=== PATIENT | female | born 1965 | race Caucasian/White ===

== ENCOUNTER 2016-07-01 22:38 | Emergency (ER) | payer MEDICARE ==
--- NOTE | 2016-07-01 23:20 | ERNOTE ---
Headache ER HPI - Narrative Date of Service: 07/01/16 - General Presenting Symptoms: headache, "migraine" Time Seen by Provider: 07/01/16 23:20 Source: patient, RN notes reviewed - Immun/Allergies/Home Medications Immunizations: IMMUNIZATION HX Immunizations Up to Date Yes History of Influenza Vaccine No Hx Pneumococcal Vaccination No Allergies/Adverse Reactions: Allergies gabapentin Allergy (Verified 07/01/16 22:46) metoclopramide HCl [From Reglan] Allergy (Verified 07/01/16 22:46) aspertene Allergy (Uncoded 07/01/16 22:46) Home Medications: HOME MEDICATIONS Albuterol Sulfate [Ventolin Hfa] 2 puff IH Q4H 01/22/14 [Last Taken Unknown] Vitamin D3/Vitamin K2 [D3 + K2 Dots 1,000 Units Tab] 10,000 units PO Q7D [Last Taken Unknown] traZODone HCL [Desyrel] 300 mg PO HS 02/27/15 [Last Taken Unknown] Buspirone HCl 7.5 mg PO BID 03/22/16 [Last Taken Unknown] LORazepam [Ativan] 1 mg PO TID 03/22/16 [Last Taken Unknown] - Pain Pain Score: 8 - History of Present Illness Date (Duration): 07/01/16 Timing of Headache: abrupt, still present, constant, persistent Context Headache: Present: new onset Quality: Present: throbbing Severity Maximum: Present: severe Severity-Currently: Present: severe Headache frequency: Present: occasional headaches, similar to previous headache Modifying Factors - (Worsens): Reports: exposure to light Associated Symptoms: Reports: nausea, vomiting - once Exacerbated by:: Reports: light, noise Review of Systems - Review of Systems Constitutional: Present: no symptoms reported EYE: Present: see HPI, blurred vision ENT: Present: no symptoms reported Respiratory: Present: no symptoms reported Cardiology: Present: no symptoms reported Gastrointestinal/Abdominal: Present: See HPI, nausea, vomiting Genitourinary: Present: no symptoms reported Musculoskeletal: Present: no symptoms reported Skin: Present: no symptoms reported Neurological: Present: See HPI, headache Endocrine: Present: no symptoms reported Hematologic/Lymphatic: Present: no symptoms reported Psych: Present: no symptoms reported All Other Systems: All systems neg except as marked - Patient's Past Medical History Patient History - Medical: Arthritis, Fibromyalgia, Migraines Patient History - Cardiac/Respiratory: Hypertension Patient History - Cancer: No Hx of Cancer Patient History - Surgical Procedures: Hysterectomy, Tubal Ligation, Other Patient History - Other: None - Social History Living Situations: home Psych History: No pertinent hx Smoking Status: Current every day smoker Alcohol Use: none Drug Use: none - Immunizations Immunizations Up to Date: Yes Hx Pneumococcal Vaccination: No History of Influenza Vaccine: No Physical Exam - Physical Exam General Appearance: Present: alert, mild distress - Due to pain Eye Exam: Normal inspection: bilateral, PERRL: bilateral, EOMI: bilateral Ears, Nose, Throat: Present: normal ENT inspection, hearing grossly normal Neck: Present: normal inspection, nontender Respiratory: Present: no respiratory distress, normal breath sounds, no accessory muscle use, chest nontender, lungs clear Cardiovascular/Chest: Present: regular rate, rhythm, no murmur, normal peripheral pulses Gastrointestinal/Abdominal: Present: normal bowel sounds, nontender, nondistended, soft, no organomegaly Neurological Exam: Present: alert, oriented, normal mood/affect, no motor/ sensory deficits Skin Exam: Present: normal color, warm/dry ED Progress - Vital Signs Patient's Vital Signs:: I have reviewed the patient's vital signs. Vital Signs: Vital Signs 07/01/16 22:43 Temperature 36.4 C L Pulse Rate 86 Respiratory 18 Rate Blood Pressure 140/87 O2 Sat by Pulse 96 Oximetry - Progress/Reassessment Chief Complaint: Headache Progress:: Pain free at discharge Departure Clinical Impression: Migraine headache with aura Qualifiers: Status migrainosus presence: without status migrainosus Intractability: not intractable Qualified Code(s): G43.109 - Migraine with aura, not intractable, without status migrainosus - Departure Disposition: Home self-care Condition: Good Instructions: Migraine Headache, [id number] Referrals: Baljeet Feliz MD [Primary Care Provider] -
[2016-07-01] MEDS ORDERED: DIAZEPAM 5 MG/ML SYRG IV ONE (23:24)
[2016-07-01] MEDS ORDERED: KETOROLAC TROMETHAMINE 30 MG/ML VIAL IV ONE (23:24)
[2016-07-01] MEDS ORDERED: NORMAL SALINE 1,000 ML IV ONE (23:24)
[2016-07-01] MEDS ORDERED: DEXAMETHASONE SOD PHOSPHATE 10 MG/ML VIAL IV ONE (23:24)
[2016-07-01] MEDS ORDERED: PROCHLORPERAZINE EDISYLATE 5 MG/ML VIAL IV ONE (23:26)
[2016-07-01] MEDS ORDERED: KETOROLAC TROMETHAMINE 30 MG/ML VIAL ONE (23:31)
[2016-07-01] MEDS ORDERED: DEXAMETHASONE SOD PHOSPHATE 10 MG/ML VIAL ONE (23:31)
[2016-07-01] MEDS ORDERED: DIAZEPAM 5 MG/ML SYRG ONE (23:31)
[2016-07-01] MEDS ORDERED: PROCHLORPERAZINE EDISYLATE 5 MG/ML VIAL ONE (23:31)
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
[2016-07-02 01:06] VITALS: BP 126/82
== END 2016-07-02 01:05 | disposition home or self-care (01) ==
LOC: ER 22:38
DX: G43.109 Migraine with aura, not intractable, without status migrainosus (principal); F17.210 Nicotine dependence, cigarettes, uncomplicated

== ENCOUNTER 2016-11-17 14:16 | Emergency (ER) | payer MEDICARE ==
[2016-11-17] MEDS ORDERED: PROMETHAZINE HCL 25 MG in DEXTROSE 5 % IN WATER 50 ML IV ONE ×2 (15:58)
[2016-11-17] MEDS ORDERED: KETOROLAC TROMETHAMINE 30 MG/ML VIAL IV ONE (15:58)
[2016-11-17] MEDS ORDERED: NORMAL SALINE 1,000 ML IV ONE (15:58)
[2016-11-17] MEDS ORDERED: diphenhydrAMINE HCL 50 MG/ML VIAL IV ONE (15:58)
--- NOTE | 2016-11-17 15:59 | ERNOTE ---
Date of Service: 11/17/16 Time Seen by Provider: 11/17/16 15:49 Stated Complaint: PNEUNOMIA Presenting Symptoms:: cough Source: patient, RN notes reviewed Exam Limitations: no limitations Immunizations: IMMUNIZATION HX Immunizations Up to Date Yes History of Influenza Vaccine Yes Hx Pneumococcal Vaccination No Allergies/Adverse Reactions: Allergies metoclopramide HCl [From Reglan] Allergy (Verified 07/01/16 22:46) aspertene Allergy (Uncoded 07/01/16 22:46) Home Medications: HOME MEDICATIONS Albuterol Sulfate [Ventolin Hfa] 2 puff IH Q4H 01/22/14 [Last Taken Unknown] Cholecalciferol (Vitd3)/Vit K2 [D3 + K2 Dots 1,000 Units Tab] 10,000 units PO Q7D 01/22/14 [Last Taken Unknown] traZODone HCL [Desyrel] 300 mg PO HS 02/27/15 [Last Taken Unknown] Buspirone HCl 7.5 mg PO BID 03/22/16 [Last Taken Unknown] LORazepam [Ativan] 1 mg PO TID 03/22/16 [Last Taken Unknown] - History of Present Ilness Narrative: 51 y/o female ambulatory to the ED for pneumonia. She was recently treated for thrush and reports that it has "went into pneumonia." She also reports a migraine headache. 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 She has been on amoxicillin for several weeks for a dental infection because she is to have back surgery soon. Prior Treatment: Reports: recently seen, treated by physician, currently on antibiotics Review of Systems - Review of Systems Constitutional: Present: recent illness, fever, chills, fatigue, malaise EYE: Absent: eye pain, vision changes ENT: Present: ear pain, nose congestion, sore throat Respiratory: Present: cough. Absent: shortness of breath, wheezing Cardiology: Absent: chest pain, syncope Gastrointestinal/Abdominal: Present: nausea. Absent: vomiting, abdominal pain Genitourinary: Present: no symptoms reported Musculoskeletal: Present: no symptoms reported Skin: Absent: rash, lesions Neurological: Present: headache. Absent: dizziness/light-headedness Endocrine: Present: no symptoms reported Hematologic/Lymphatic: Present: no symptoms reported Psych: Present: no symptoms reported - Patient's Past Medical History Patient History - Medical: Anxiety, Arthritis, Chronic Pain - Back, Depression, Fibromyalgia, Migraines, Other - Suicide attempt, Cannabis abuse, personality disorder Patient History - Cardiac/Respiratory: Hypertension Patient History - Cancer: No Hx of Cancer Patient History - Surgical Procedures: Back Surgery, Hysterectomy, Tubal Ligation, Other Patient History - Other: None LMP (females 10-50): Menopausal - Social History Living Situations: home Abuse History: No History of abuse Psych History: Hx of Anxiety, Hx of Depression, Current tx/ever been on anti- depressants or anti-anxiety meds Smoking Status: Current every day smoker Have you smoked in the past 12 months: Yes Do you dip or chew tobacco: No Patient requests Smoking Cessation Consult: No Initiate information on Smoking Cessation: No Alcohol Use: rarely Drug Use: none - Immunizations Immunizations Up to Date: Yes Hx Pneumococcal Vaccination: No History of Influenza Vaccine: Yes Physical Exam - Physical Exam General Appearance: Present: wd/wn, alert, no apparent distress Ears, Nose, Throat: Present: nasal congestion, pharyngeal erythema. Absent: abnormal TM (R), abnormal TM (L), sinus pain/drainage Neck: Present: normal inspection, nontender, supple Respiratory: Present: no respiratory distress, normal breath sounds, no accessory muscle use, lungs clear Cardiovascular/Chest: Present: regular rate, rhythm, no murmur Extremity Exam: Present: normal inspection, no edema Neurological Exam: Present: alert, oriented, normal mood/affect, no motor/ sensory deficits Skin Exam: Present: normal color, warm/dry ED Progress - Results and Orders Patient's Lab Results:: I have reviewed the patient's lab results. - Vital Signs Patient's Vital Signs:: I have reviewed the patient's vital signs. Vital Signs: Vital Signs 11/17/16 11/17/16 14:43 15:33 Temperature 36.8 C 36.9 C Pulse Rate 87 69 Respiratory 18 18 Rate Blood Pressure 135/77 139/67 O2 Sat by Pulse 97 92 Oximetry - X-Ray X-Ray #1 X-Ray: chest Interpretation: Reviewed by me X-ray Comments: Chest PA Lateral * Hyperinflated lung volumes. Central bronchial wall prominence noted. No consolidation or mass. No pneumothorax or pleural fluid collections. Cardiac and mediastinal silhouettes are normal. Trachea is in normal position. Bones show degenerative changes of the spine. Patient has mild anterior wedging of the L1 vertebral body seen best in the lateral image. Patient does have a previous lumbar spine radiograph from 09/15/2011, which did not show a compression deformity at L1. IMPRESSION: 1. Findings compatible with acute or chronic bronchitis versus reactive airways disease. Also consider COPD/emphysema, if the patient has history of smoking. 2. Incidental anterior wedging of the L1 vertebral body, new since 2011. Correlate clinically for possible acute versus chronic compression fracture. Consider dedicated evaluation of the lumbar spine as clinically indicated. Electronically signed by Nabil Ding M.D.. Nabil Ding MD Dict: 11/17/161616 Typed: 11/17/16 1617/ - Progress/Reassessment Chief Complaint: Upper Respiratory Symptoms Progress:: Improved Progress Note-Subjective: 11/17/16 17:56 Continues to have headache pain after Phenergan, Toradol and Benadryl IV with 1L NS bolus. States that Demerol works well for her. Also reports that it is time for her scheduled dose of oxycodone. 11/17/16 18:30 Patient dozing after Valium, Decadron and Percocet given. Asks nurse when she can go home. Departure - Departure Clinical Impression: Upper respiratory infection, viral Migraine Qualifiers: Migraine type: unspecified Status migrainosus presence: without status migrainosus Intractability: not intractable Qualified Code(s): G43.909 - Migraine, unspecified, not intractable, without status migrainosus Disposition: Home Follow Up Needed Condition: Stable Instructions: Migraine Headache, [id number] Additional Instructions: Continue your current medications See your doctor if symptoms worsen
--- OUTSIDE RECORDS SUMMARY | 2016-11-17 16:03 | XMS REPORT | Continuity of Care Document ---
:1965 Author Organization [facility] [place] [address] Care Team Providers Name Role Phone Provider, Not In System Primary Care Provider Unavailable Source Comments This disclosure is being made pursuant to the [employer] program and maynot contain all information available regarding this patient.[facility] Active Allergies and Adverse Reactions Allergen Noted Date Severity Reactions Comments Metoclopramide 09/16/2016 High Seizures Current Medications Be aware that medications may not be up to date as of this document. Alwaysverify current medications with the patient. Prescription Sig. Disp. Refills Start Date End Date Status promethazine-dextromethor Take 5 mLs by 118 mL 0 09/16/2016 Active michel (PROMETHAZINE-DM) mouth 4 (four) 6.25-15 MG/5ML syrup times daily as needed for Cough. Active Problems No known active problems Most Recent Encounters Date Type Specialty Providers Description 09/16/2016 Office Visit Family Medicine Tristin Walters DO Gastroenteritis (Primary Dx); Migraine without aura and without status migrainosus, not intractable; Cough Social History Tobacco Use Types Packs/Day Years Used Date Never Assessed Last Filed Vital Signs Vital Sign Reading Time Taken Blood Pressure - - Pulse 120 09/16/2016 11:37 AM CDT Temperature 36.6 C (97.9 F) 09/16/2016 11:37 AM CDT Respiratory Rate - - Height 1.651 m (5' 5") 09/16/2016 11:37 AM CDT Weight 68.04 kg (150 lb) 09/16/2016 11:37 AM CDT Body Mass Index 24.96 09/16/2016 11:37 AM CDT Oxygen Saturation - - Plan of Care Health Maintenance Due Date Last Done Comments Hepatitis C Screening 1981 Tetanus/Pertussis (1 - Tdap) 1982 Pap Smear 01/25/1984 Colonoscopy 2013 Mammogram 2013 Well Adult Visit 2013 Influenza Immunization (#1) 2016 Results from Last 3 Months Not on file Insurance Payer Benefit Plan / Group Subscriber ID Type Phone Address MEDICARE MEDICARE A AND B [id number] [phone] [address] [place] [address]
[2016-11-17] MEDS ORDERED: KETOROLAC TROMETHAMINE 30 MG/ML VIAL ONE (16:10)
[2016-11-17] MEDS ORDERED: diphenhydrAMINE HCL 50 MG/ML VIAL ONE (16:10)
[2016-11-17 16:17] LABS: Hematocrit 46.4 % (37.0-47.0); Hemoglobin 15.8 gm/dL (12.5-16.0); Mean Cell Volume 92.2 fl (78-100); Mean Corpuscular Hemoglobin 31.4 pg (27-31); Mean Corpuscular Hgb Conc 34.1 g/dl (32-36); Mean Platelet Volume 9.8 fl (6.0-9.5); Neutrophil # 6.8 K/mm3 (1.3-6.0); Neutrophil % 73.4 % (42-75.0); Platelet Count 215 K/mm3 (150-450); Red Blood Count 5.03 M/mm3 (4.2-5.4); Red Cell Distribution Width 13.4 % (11.5-14.0); White Blood Count 9.2 K/mm3 (4.0-10.5)
[2016-11-17 16:29] LABS: BUN/Creatinine Ratio 19.4 (9.0-21.6); Bilirubin, Total 0.4 mg/dL (0.0-1.1); Ca. Corrected For Albumin 9.6 mg/dL (8.4-10.2); Calcium * 9.9 mg/dL (7.9-10.9); Carbon Dioxide 28.4 mmol/L (24-32.6); Potassium 4.4 mmol/L (3.4-4.6); Total Protein 7.6 gm/dL (6.2-8.2)
[2016-11-17] MEDS ORDERED: DEXAMETHASONE SOD PHOSPHATE 10 MG/ML VIAL IV ONE (17:55)
[2016-11-17] MEDS ORDERED: DIAZEPAM 5 MG/ML SYRG IV ONE (17:55)
[2016-11-17] MEDS ORDERED: oxyCODONE HCL/ACETAMINOPHEN 1 TAB TABLET PO ONE (17:57)
[2016-11-17] MEDS ORDERED: DEXAMETHASONE SOD PHOSPHATE 10 MG/ML VIAL ONE (18:00)
[2016-11-17] MEDS ORDERED: DIAZEPAM 5 MG/ML SYRG ONE (18:00)
[2016-11-17] MEDS ORDERED: oxyCODONE HCL/ACETAMINOPHEN 1 TAB TABLET ONE (18:00)
[2016-11-17 18:38] VITALS: BP 118/68
== END 2016-11-17 18:37 | disposition home or self-care (01) ==
LOC: ER 14:16
DX: J06.9 Acute upper respiratory infection, unspecified (principal); Z72.0 Tobacco use; G43.909 Migraine, unspecified, not intractable, without status migrainosus